=== PATIENT | female | born 1945 | race Caucasian/White ===

== ENCOUNTER → 2016-10-26 | Outpatient (CLI) | payer OTHER | LOC: NM 10-14 09:30 → ECHO 10-19 11:30 → NM 09:01 | DX: Z01.818 Encounter for other preprocedural examination (principal); R07.9 Chest pain, unspecified; R06.02 Shortness of breath; I51.7 Cardiomegaly; I34.0 Nonrheumatic mitral (valve) insufficiency; I35.0 Nonrheumatic aortic (valve) stenosis; R06.00 Dyspnea, unspecified; I10 Essential (primary) hypertension; R94.39 Abnormal result of other cardiovascular function study | CPT/HCPCS: ECHO; 78452; 93017; 93306; A9502; J2785 ==

== ENCOUNTER → 2021-08-04 | Outpatient (CLI) | payer OTHER | LOC: RT 11:33 | DX: J45.50 Severe persistent asthma, uncomplicated (principal) | CPT/HCPCS: 36600; 82803 ==

== ENCOUNTER → 2021-08-04 | Outpatient (CLI) | payer OTHER | LOC: EXRD 09:12 | DX: J45.50 Severe persistent asthma, uncomplicated (principal); I51.7 Cardiomegaly; R94.2 Abnormal results of pulmonary function studies | CPT/HCPCS: 71046; 94060; 94729; 95012 ==